=== PATIENT | male | born 1960 | race Caucasian/White ===

== ENCOUNTER 2017-06-27 11:31 | Emergency (ER) | payer BC, OTHER ==
[~2017-06-27] VITALS: Ht 185.4 cm; Wt 110.0 kg
[2017-06-27 11:39] VITALS: BP 169/95; PULSE 81; RESP 20; TEMP 97.8; O2SAT 97
--- NOTE | 2017-06-27 12:47 | PD ---
HPI Chief Complaint: Abnormal Results Time Seen by Provider: 12:42 Travel History International Travel<30 days: No Contact w/Intl Traveler<30days: No Traveled to known affect area: No History of Present Illness HPI 57-year-old male with history of diabetes presents emergency department at the instruction of his primary care provider Dr. Smiley Patient had lab work done 3 days ago. He was advised to come in due to a change in his renal function. Patient states he has been feeling well. He tells me his blood glucose has been running high for quite some time he has also been out of his metformin for the last 2-3 days. He tells me that he is voiding "all the time. " Denies any pain. Denies any recent illnesses. He has no other symptoms to report. PFSH Past Medical History Diabetes: Yes Hypertension: Yes Social History Alcohol Use: No Tobacco Use: No Substance Use: No Allergies-Medications (Allergen,Severity, Reaction): Coded Allergies: No Known Allergies (Verified Allergy, Unknown, 06/27/17) Reported Meds & Prescriptions Reported Meds & Active Scripts Active Reported Pantoprazole (Pantoprazole Sodium) 40 Mg Tab 40 Mg PO DAILY Metoprolol Tartrate 100 Mg Tab 100 Mg PO HS Lisinopril-Hctz 20-25 Mg Tab 1 Tab PO DAILY Metformin (Metformin HCl) 500 Mg Tab 500 Mg PO BIDPC Review of Systems Except as stated in HPI: all other systems reviewed are Neg Physical Exam Narrative GENERAL: Well-nourished male patient, in no acute distress. SKIN: Focused skin assessment warm/dry. HEAD: Atraumatic. Normocephalic. EYES: Pupils equal and round. No scleral icterus. No injection or drainage. ENT: No nasal bleeding or discharge. Mucous membranes pink and moist. NECK: Trachea midline. No JVD. CARDIOVASCULAR: Regular rate and rhythm. No murmur appreciated. RESPIRATORY: No accessory muscle use. Clear to auscultation. Breath sounds equal bilaterally. GASTROINTESTINAL: Abdomen soft, non-tender, nondistended. Hepatic and splenic margins not palpable. MUSCULOSKELETAL: No obvious deformities. No clubbing. No cyanosis. No edema. NEUROLOGICAL: Awake and alert. No obvious cranial nerve deficits. Motor grossly within normal limits. Normal speech. PSYCHIATRIC: Appropriate mood and affect; insight and judgment normal. Data Data Last Documented VS Vital Signs Date Time Temp Pulse Resp B/P (MAP) Pulse Ox O2 Delivery O2 Flow Rate FiO2 06/27/17 12:55 80 16 99 Room Air 06/27/17 11:39 97.8 169/95 (119) Orders Orders Complete Blood Count With Diff (06/27/17 11:42) Blood Glucose (06/27/17 11:42) Comprehensive Metabolic Panel (06/27/17 11:42) Urinalysis - C+S If Indicated (06/27/17 11:42) Iv Access Insert/Monitor (06/27/17 13:22) Sodium Chlor 0.9% 1000 Ml Inj (Ns 1000 M (06/27/17 13:30) Sodium Chlor 0.9% 1000 Ml Inj (Ns 1000 M (06/27/17 13:30) Ed Discharge Order (06/27/17 13:42) Labs Laboratory Tests Test 06/27/17 11:45 06/27/17 11:46 Urine Color YELLOW Urine Turbidity CLEAR Urine pH 5.5 [address] [place] 1.034 Urine Protein 30 mg/dL Urine Glucose (UA) 1000 mg/dL Urine Ketones 40 mg/dL Urine Occult Blood NEG Urine Nitrite NEG Urine Bilirubin NEG Urine Urobilinogen LESS THAN 2.0 MG/DL Urine Leukocyte Esterase NEG Urine RBC LESS THAN 1 /hpf Urine WBC LESS THAN 1 /hpf Microscopic Urinalysis Comment CULT NOT INDICATED White Blood Count 10.2 TH/MM3 Red Blood Count 4.75 MIL/MM3 Hemoglobin 13.9 GM/DL Hematocrit 41.4 % Mean Corpuscular Volume 87.2 FL Mean Corpuscular Hemoglobin 29.3 PG Mean Corpuscular Hemoglobin Concent 33.6 % Red Cell Distribution Width 13.5 % Platelet Count 231 TH/MM3 Mean Platelet Volume 9.6 FL Neutrophils (%) (Auto) 55.5 % Lymphocytes (%) (Auto) 35.1 % Monocytes (%) (Auto) 6.5 % Eosinophils (%) (Auto) 1.7 % Basophils (%) (Auto) 1.2 % Neutrophils # (Auto) 4.7 TH/MM3 Lymphocytes # (Auto) 3.0 TH/MM3 Monocytes # (Auto) 0.5 TH/MM3 Eosinophils # (Auto) 0.1 TH/MM3 Basophils # (Auto) 0.1 TH/MM3 CBC Comment DIFF FINAL Differential Comment Hematology Comments Blood Urea Nitrogen 21 MG/DL Creatinine 1.47 MG/DL Random Glucose 334 MG/DL Total Protein 8.0 GM/DL Albumin 3.7 GM/DL Calcium Level 8.2 MG/DL Alkaline Phosphatase 96 U/L Aspartate Amino Transf (AST/SGOT) 78 U/L Alanine Aminotransferase (ALT/SGPT) 63 U/L Total Bilirubin 1.1 MG/DL Sodium Level 129 MEQ/L Potassium Level 4.9 MEQ/L Chloride Level 95 MEQ/L Carbon Dioxide Level 23.5 MEQ/L Anion Gap 11 MEQ/L Estimat Glomerular Filtration Rate 49 ML/MIN MDM Medical Decision Making Medical Screen Exam Complete: Yes Emergency Medical Condition: Yes Medical Record Reviewed: Yes Differential Diagnosis Electrolyte abnormality versus acute kidney injury versus chronic renal disease versus normal exam Narrative Course 57-year-old male presents to emergency department for evaluation at the instruction of his primary care provider. Patient appears without distress. He has no active symptoms and states that he "really doesn't know why he is here." He appears well, nontoxic. Lab work is repeated and reviewed. Laboratory Tests Test 06/27/17 11:45 06/27/17 11:46 Urine Color YELLOW Urine Turbidity CLEAR Urine pH 5.5 Urine Specific [place] 1.034 Urine Protein 30 mg/dL Urine Glucose (UA) 1000 mg/dL Urine Ketones 40 mg/dL Urine Occult Blood NEG Urine Nitrite NEG Urine Bilirubin NEG Urine Urobilinogen LESS THAN 2.0 MG/DL Urine Leukocyte Esterase NEG Urine RBC LESS THAN 1 /hpf Urine WBC LESS THAN 1 /hpf Microscopic Urinalysis Comment CULT NOT INDICATED White Blood Count 10.2 TH/MM3 Red Blood Count 4.75 MIL/MM3 Hemoglobin 13.9 GM/DL Hematocrit 41.4 % Mean Corpuscular Volume 87.2 FL Mean Corpuscular Hemoglobin 29.3 PG Mean Corpuscular Hemoglobin Concent 33.6 % Red Cell Distribution Width 13.5 % Platelet Count 231 TH/MM3 Mean Platelet Volume 9.6 FL Neutrophils (%) (Auto) 55.5 % Lymphocytes (%) (Auto) 35.1 % Monocytes (%) (Auto) 6.5 % Eosinophils (%) (Auto) 1.7 % Basophils (%) (Auto) 1.2 % Neutrophils # (Auto) 4.7 TH/MM3 Lymphocytes # (Auto) 3.0 TH/MM3 Monocytes # (Auto) 0.5 TH/MM3 Eosinophils # (Auto) 0.1 TH/MM3 Basophils # (Auto) 0.1 TH/MM3 CBC Comment DIFF FINAL Differential Comment Hematology Comments Blood Urea Nitrogen 21 MG/DL Creatinine 1.47 MG/DL Random Glucose 334 MG/DL Total Protein 8.0 GM/DL Albumin 3.7 GM/DL Calcium Level 8.2 MG/DL Alkaline Phosphatase 96 U/L Aspartate Amino Transf (AST/SGOT) 78 U/L Alanine Aminotransferase (ALT/SGPT) 63 U/L Total Bilirubin 1.1 MG/DL Sodium Level 129 MEQ/L Potassium Level 4.9 MEQ/L Chloride Level 95 MEQ/L Carbon Dioxide Level 23.5 MEQ/L Anion Gap 11 MEQ/L Estimat Glomerular Filtration Rate 49 ML/MIN CBC is without acute concern. CMP is with sodium 129, BMI 21, creatinine 1.49, GFR is 49. Random glucose is 334. Urinalysis has 1000 glucosuria, 30 protein, 40 ketones. I discussed patient my attending physician is also assessed him. Patient will be given 2 L normal saline fluid and discharged him to follow-up with his primary care provider. Plan is discussed with the patient and his family members at bedside. They are in agreement with this plan of care. Diagnosis Primary Impression: Hyperglycemia Additional Impression: Renal insufficiency Referrals: Primary Care Physician Patient Instructions: Diabetic Hyperglycemia (DC), General Instructions Additional Instructions: Follow-up with your primary care provider It is important that you refill your metformin and take it as directed [facility] worsening symptoms Med/Other Pt SpecificInfo: No Change to Meds Disposition: 01 DISCHARGE HOME Condition: Stable Danna Freed Jun 27, 2017 12:47
[2017-06-27] MEDS ORDERED: PANT40TA3 PO (12:55)
[2017-06-27] MEDS ORDERED: METF500T PO (12:55)
[2017-06-27] MEDS ORDERED: METO100T PO (12:55)
[2017-06-27] MEDS ORDERED: LISI20TA3 PO (12:55)
[2017-06-27 12:58] LABS: BILIRUBIN, URINE NEG (NEG); BLOOD, URINE NEG (NEG); GLUCOSE,URINE 1000 mg/dL (NEG); KETONE, URINE 40 mg/dL (NEG); NITRITE,URINE NEG (NEG); PH, URINE 5.5 (5.0-8.5); URINE COLOR YELLOW (YELLW/STRAW); URINE LEUKOCYTE ESTERASE NEG (NEG)
[2017-06-27 13:02] LABS: ALKALINE PHOSPHATASE 96 U/L (45-117); TOTAL BILIRUBIN ADULT 1.1 MG/DL (0.2-1.0)
[2017-06-27 13:17] LABS: BLOOD UREA NITROGEN 21 MG/DL (7-18); CREATININE 1.47 MG/DL (0.60-1.30); GLOMERULAR FILTRATION RATE 49 ML/MIN (>89)
[2017-06-27 13:18] LABS: ALBUMIN 3.7 GM/DL (3.4-5.0); ALT (GPT) 63 U/L (12-78); AST (GOT) 78 U/L (15-37); BICARBONATE 23.5 MEQ/L (21.0-32.0); CALCIUM 8.2 MG/DL (8.5-10.1); CHLORIDE 95 MEQ/L (98-107); GLUCOSE,RANDOM 334 MG/DL (74-106); SODIUM (NA) 129 MEQ/L (136-145)
[2017-06-27] MEDS ORDERED: SODIUM CHLOR 0.9% 1000 ML INJ 1,000 ML IV ONE ×2 (13:30)
[2017-06-27 13:32] LABS: AUTOMATED NEUTROPHIL # 4.7 TH/MM3 (1.8-7.7); BASOPHIL # 0.1 TH/MM3 (0-0.2); BASOPHIL % 1.2 % (0.0-2.0); EOSINOPHIL # 0.1 TH/MM3 (0-0.4); EOSINOPHIL % 1.7 % (0.0-4.0); HEMATOCRIT 41.4 % (39.0-51.0); HEMOGLOBIN 13.9 GM/DL (13.0-17.0); LYMPH % 35.1 % (9.0-44.0); MEAN CELL VOLUME 87.2 FL (80.0-100.0); MEAN CORPUSCULAR HEMOGLOBIN 29.3 PG (27.0-34.0); MEAN CORPUSCULAR HGB CONC 33.6 % (32.0-36.0); MEAN PLATELET VOLUME 9.6 FL (7.0-11.0); MONO % 6.5 % (0.0-8.0); MONOCYTE # 0.5 TH/MM3 (0-0.9); NEUT % 55.5 % (16.0-70.0); RED BLOOD COUNT 4.75 MIL/MM3 (4.50-5.90); RED CELL DISTRIBUTION WIDTH 13.5 % (11.6-17.2)
[2017-06-27 13:34] LABS: PLATELET COUNT 231 TH/MM3 (150-450); WHITE BLOOD COUNT 10.2 TH/MM3 (4.0-11.0)
[2017-06-27 13:43] VITALS: BP 164/88; PULSE 78; RESP 16; TEMP 97.8; O2SAT 99
[2017-06-27 14:25] VITALS: BP 148/81; TEMP 97.8
== END 2017-06-27 14:25 | disposition home or self-care (01) ==
LOC: NEPE 11:31
DX: E11.65 Type 2 diabetes mellitus with hyperglycemia (principal); N28.9 Disorder of kidney and ureter, unspecified; I10 Essential (primary) hypertension; Z79.84 Long term (current) use of oral hypoglycemic drugs; Z79.899 Other long term (current) drug therapy
CPT/HCPCS: 80053; 81001; 85025; 96360; 99284; J7030